=== PATIENT | male | born 1940 | race Caucasian/White ===

== ENCOUNTER 2017-04-22 09:02 | Day surgery (SDC) | payer MEDICARE ==
[~2017-04-22 09:02] MED LIST: Buffered Lidocaine 0.9% SYRIN* 5 ML/SYR SYRINGE INTRADERM ONE; Sodium Citrate/Citric Acid* 15 ML UDC PO ONE
[2017-04-22] MEDS ORDERED: Sodium Citrate/Citric Acid* 15 ML UDC ONE (09:09)
[2017-04-22] MEDS ORDERED: Buffered Lidocaine 0.9% SYRIN* 5 ML/SYR SYRINGE ONE (09:09)
[2017-04-22] MEDS ORDERED: ceFAZolin 2 GM PREMIX (*) 2 GM/50 ML BAG IVPB ONE (09:09)
[2017-04-22] MEDS ORDERED: Lidocaine 2% PF * 5 ML VIAL ONE (10:09)
[2017-04-22] MEDS ORDERED: Ketorolac INJ* 30 MG/ML 1 ML VIAL ONE (10:09)
[2017-04-22] MEDS ORDERED: Ondansetron INJ* 2 MG/ML VIAL ONE (10:09)
[2017-04-22] MEDS ORDERED: Midazolam* 1 MG/ML 2 ML VIAL (2 MG) ONE (10:13)
[2017-04-22] MEDS ORDERED: fentaNYL* 50 MCG/ML 2 ML VIAL (100 MCG VIAL) ONE (10:13)
[2017-04-22] MEDS ORDERED: Propofol* 10 MG/ML 20 ML BTL IV PUSH ONE ×2 (10:19→10:38)
[2017-04-22] MEDS ORDERED: Bupivacaine 0.5% SDV PF* 30 ML VIAL ONE (11:13)
[2017-04-22] MEDS ORDERED: Lidocaine 1% MPF wEPI 200,000* 30 ML SDV ONE (11:13)
[2017-04-22] MEDS ORDERED: Ondansetron INJ* 2 MG/ML VIAL IV PRN (11:39)
[2017-04-22] MEDS ORDERED: HYDROmorphone INJ* 1 MG/ML CARPUJECT SYRINGE IV PRN (11:39)
[2017-04-22] MEDS ORDERED: PROCHLORPERAZINE INJ 5 MG/ML 2 ML VIAL IV PRN (11:39)
[2017-04-22] MEDS ORDERED: oxyCODONE TAB* 5 MG TAB PO PRN (11:39)
[2017-04-22] MEDS ORDERED: Ibuprofen TAB* 600 MG PO PRN (11:39)
[2017-04-22] MEDS ORDERED: Acetaminophen TAB* 325 MG PO PRN (11:39)
[2017-04-22] MEDS ORDERED: fentaNYL* 50 MCG/ML 2 ML VIAL (100 MCG VIAL) IV PRN (11:39)
[2017-04-22] MEDS ORDERED: oxyCODONE/Acetamin 5/325 MG* TAB PO PRN ×2 (11:39→12:55)
[2017-04-22 14:47] VITALS: BP 153/81
[2017-04-22] MEDS ORDERED: Tobramycin 0.3% OPHTH.OINT* 3.5 GM TUBE (OPTH OINTMENT) RIGHT EYE SCH (21:00)
--- NOTE | 2017-04-22 22:45 | OP ---
DATE OF OPERATION: 04/22/17 - [facility] DATE OF : 38 SURGEON: Edward Spicer MD PIERCING ARTIST: MAUREEN Perez ANESTHESIOLOGIST: Dr. Jackie Nunez. ANESTHESIA: Local with monitored anesthesia care. PRE-OP DIAGNOSIS: Right inguinal hernia. POST-OP DIAGNOSIS: Right direct inguinal hernia. OPERATIVE PROCEDURE: Open repair of a right direct inguinal hernia with a ProGrip Covidien polyester mesh. ESTIMATED BLOOD LOSS: Minimal. COMPLICATIONS: None. DRAINS: None. SPECIMENS: None. DESCRIPTION OF PROCEDURE: Written informed consent was obtained, the right groin was marked with indelible ink and preoperative antibiotics were administered. The patient was taken to the operating room and placed in the supine position. Sequential compression devices and a warming blanket were applied. Time-out verification was completed. A mixture of 0.5% Marcaine and 1% lidocaine was infiltrated in the right groin and an oblique incision several finger-breadths above the inguinal crease was made and carried down through Shanita's fascia. The external oblique aponeurosis and external ring were identified and opened in the direction of its fibers. Next, the underlying spermatic cord was encircled with a one-quarter inch Mikado drain at the pubic tubercle. The cord structures were then reflected anteriorly to expose the direct space. It appeared that there was a rather large direct space hernia with laxity of the entire floor. There was a lipoma on the spermatic cord, which was excised, but not sent for specimen. Care was taken to prevent an injury to the cord structures throughout the remainder of the case. It should be noted there was no evidence of indirect inguinal hernia. Once we had identified the anatomy, a ProGrip Covidien precut mesh was then placed and sutured to the pubic tubercle medially and placed to cover both the direct and indirect spaces and adhered to the conjoint tendon superiorly, the musculature laterally as well as the inguinal ligament inferiorly. Several 0 Vicryl sutures were placed to secure the mesh. Hemostasis was assured. The mesh appeared to be without wrinkling or folding. Additional Marcaine was infiltrated. The external oblique aponeurosis was closed with a running 0 Polysorb suture. The Shanita's fascia was closed with a running 3-0 Vicryl suture. The skin was approximated with subcuticular 4-0 Vicryl suture. Steri-Strips and sterile dressings were applied. The patient tolerated the procedure well, was taken to the recovery room in stable condition. [id number]/[facility] #: [id number] WILL
== END 2017-04-22 15:03 | disposition home or self-care (01) ==
LOC: OR 09:02
PROVIDERS: ATTEND Surgery
DX: K40.90 Unilateral inguinal hernia, without obstruction or gangrene, not specified as recurrent (principal); E78.5 Hyperlipidemia, unspecified; I10 Essential (primary) hypertension
CPT/HCPCS: A9270-GY; C1781; J0690; J1885; J2001; J2250; J2405; J2704; J3010

== ENCOUNTER 2023-01-13 14:28 | Inpatient (IN) ==
[2023-01-14] MEDS ORDERED: Piperacillin/Tazobac 3.375 BAG 3.375 GM/100 ML BAG IV ONE (00:15)
[2023-01-14 00:39] LABS: ABS Monocytes 0.5 10^3/uL (0.0-1.1); ABS Neutrophils 7.1 10^3/uL (1.5-7.6); ABS Nucleated RBC 0.01 10^3/ul; Hematocrit 33.9 % (38-53); Hemoglobin 11.5 g/dL (13.2-16.3); Lymphocyte % 11.7 %; Mean Corpuscular Hemoglobin 29.4 pg (27-33); Mean Corpuscular Hgb Conc 33.8 g/dL (31-36); Mean Corpuscular Volume 86.9 fL (80-97); Nucleated Red Blood Cells % 0.1 /100 WBC (0.0-0.4); Platelet Count 291 10^3/uL (150-450); Red Cell Distribution Width 13.7 % (12-17); White Blood Count 8.6 10^3/uL (3.6-10.2)
[2023-01-14 00:54] LABS: Albumin 2.7 g/dL (3.2-5.2); Calcium 8.2 mg/dL (8.6-10.3); Creatinine, Serum 1.22 mg/dL (0.67-1.17); Globulin 2.6 g/dL (2-4); Magnesium 2.4 mg/dL (1.9-2.7); Potassium 3.3 mmol/L (3.5-5.0); Total Bilirubin 0.3 mg/dL (0.2-1.0); Total Protein 5.3 g/dL (6.4-8.9); eGFR CKD-EPI 58.8 (>60)
[2023-01-14 00:55] LABS: C Reactive Protein 124.74 mg/L (<8.01)
[2023-01-14] MEDS ORDERED: Zosyn per Pharmacy NOTE FOLLOW UP SCH (01:00)
[2023-01-14] MEDS ORDERED: KCL 20 MEQ/100 ML IVPREMIX 20 MEQ/100 ML BAG IV ONE (01:09)
[2023-01-14 02:13] LABS: Urine Appearance Turbid; Urine Bilirubin Negative (Negative); Urine Blood 2+ (Negative); Urine Color Yellow; Urine Glucose Negative (Negative); Urine Ketones 1+ (Negative); Urine Nitrite Negative (Negative); Urine Protein 2+(100 mg/dL) (Negative); Urine Urobilinogen Negative (Negative)
[2023-01-14 02:19] LABS: Urine Bacteria Absent (Absent); Urine Red Blood Cell 2+(6-10/hpf) (Absent); Urine White Blood Cell 3+(>20/hpf) (Absent)
[2023-01-14] MEDS: NS 0.9% 1000 ml BAG 1,000 ML IV SCH ×2 (02:38→18:01)
[2023-01-14] MEDS: ZOSYN 3.375 GM Q8H per EXTENDED INFUSION IV SCH ×3 (06:26→22:15)
[2023-01-14] MEDS: Heparin 5000 UNITS/ML 1 mL VIAL SUBCUT SCH ×3 (06:30→22:17)
[2023-01-14] MEDS ORDERED: Iodixanol (CONTRAST) 320 MG/ML 100 ML SDV IV ONE (11:58)
[2023-01-14] MEDS ORDERED: cefTRIAXone 1 gm/50 mL D5W 1 GM/50 ML BAG IV SCH (12:00)
[2023-01-14] MEDS: Potassium Chlor 20 meq TAB.ER PO ONE ×2 (16:06→18:08)
[2023-01-15] MEDS: NS 0.9% 1000 ml BAG 1,000 ML IV SCH (04:04)
[2023-01-15] MEDS: Heparin 5000 UNITS/ML 1 mL VIAL SUBCUT SCH ×3 (05:48→20:32)
[2023-01-15] MEDS ORDERED: cefTRIAXone 1 gm/50 mL D5W 1 GM/50 ML BAG IV SCH (06:00)
[2023-01-15 06:05] LABS: ABS Lymphocytes 0.7 10^3/uL (1.0-4.8); ABS Monocytes 0.4 10^3/uL (0.0-1.1); ABS Neutrophils 3.2 10^3/uL (1.5-7.6); Eosinophil % 0.1 %; Hematocrit 33.5 % (38-53); Hemoglobin 11.6 g/dL (13.2-16.3); Lymphocyte % 16.3 %; Mean Corpuscular Hemoglobin 29.8 pg (27-33); Mean Corpuscular Hgb Conc 34.7 g/dL (31-36); Mean Corpuscular Volume 86.1 fL (80-97); Mean Platelet Volume 7.5 fL (7.5-11.2); Platelet Count 238 10^3/uL (150-450); Red Blood Count 3.89 10^6/uL (4.06-5.63); Red Cell Distribution Width 13.1 % (12-17); White Blood Count 4.3 10^3/uL (3.6-10.2)
[2023-01-15 06:25] LABS: Calcium 7.6 mg/dL (8.6-10.3); Creatinine, Serum 0.84 mg/dL (0.67-1.17); Potassium 3.5 mmol/L (3.5-5.0); eGFR CKD-EPI 86.5 (>60)
[2023-01-15] MEDS: metroNIDAZOLE IV 500 MG/100ML 500 MG/100 ML BAG IVPB SCH ×2 (11:25→20:32)
[2023-01-15] MEDS ORDERED: cefTRIAXone 1 gm/50 mL D5W 1 GM/50 ML BAG IV ONE (16:49)
[2023-01-16] MEDS: metroNIDAZOLE IV 500 MG/100ML 500 MG/100 ML BAG IVPB SCH ×3 (02:16→19:59)
[2023-01-16 05:54] LABS: ABS Lymphocytes 0.6 10^3/uL (1.0-4.8); ABS Monocytes 0.3 10^3/uL (0.0-1.1); ABS Neutrophils 2.7 10^3/uL (1.5-7.6); ABS Nucleated RBC 0.01 10^3/ul; Eosinophil % 0.2 %; Hematocrit 32.4 % (38-53); Hemoglobin 11.2 g/dL (13.2-16.3); Lymphocyte % 16.9 %; Mean Corpuscular Hemoglobin 29.8 pg (27-33); Mean Corpuscular Hgb Conc 34.7 g/dL (31-36); Mean Corpuscular Volume 85.9 fL (80-97); Mean Platelet Volume 7.2 fL (7.5-11.2); Nucleated Red Blood Cells % 0.2 /100 WBC (0.0-0.4); Platelet Count 228 10^3/uL (150-450); Red Blood Count 3.77 10^6/uL (4.06-5.63); Red Cell Distribution Width 13.4 % (12-17); White Blood Count 3.6 10^3/uL (3.6-10.2)
[2023-01-16 06:10] LABS: Creatinine, Serum 0.7 mg/dL (0.67-1.17); Potassium 2.9 mmol/L (3.5-5.0); eGFR CKD-EPI 91.4 (>60)
[2023-01-16] MEDS: cefTRIAXone 2 gm/50 mL D5W 2 GM/50 ML BAG IV SCH (06:36)
[2023-01-16] MEDS: Heparin 5000 UNITS/ML 1 mL VIAL SUBCUT SCH ×3 (06:37→20:00)
[2023-01-16] MEDS: KCL 20 MEQ/100 ML IVPREMIX 20 MEQ/100 ML BAG IV SCH ×3 (10:22→17:34)
[2023-01-16 15:52] LABS: Rapid COVID-19 Molecular Undetected (Undetected)
[2023-01-17] MEDS: metroNIDAZOLE IV 500 MG/100ML 500 MG/100 ML BAG IVPB SCH ×3 (03:18→19:51)
[2023-01-17] MEDS: cefTRIAXone 2 gm/50 mL D5W 2 GM/50 ML BAG IV SCH (05:20)
[2023-01-17] MEDS: Heparin 5000 UNITS/ML 1 mL VIAL SUBCUT SCH ×3 (05:20→22:30)
[2023-01-17 05:56] LABS: Calcium 7.4 mg/dL (8.6-10.3); Potassium 3.3 mmol/L (3.5-5.0)
[2023-01-17 06:02] LABS: Creatinine, Serum 0.78 mg/dL (0.67-1.17); eGFR CKD-EPI 88.5 (>60)
[2023-01-17] MEDS ORDERED: Potassium Chlor 20 meq TAB.ER PO ONE (07:53)
[2023-01-18] MEDS: metroNIDAZOLE IV 500 MG/100ML 500 MG/100 ML BAG IVPB SCH ×2 (02:55→12:26)
[2023-01-18] MEDS: Heparin 5000 UNITS/ML 1 mL VIAL SUBCUT SCH (05:43)
[2023-01-18] MEDS: cefTRIAXone 2 gm/50 mL D5W 2 GM/50 ML BAG IV SCH (05:50)
[2023-01-18 10:01] VITALS: BP 109/64
== END 2023-01-18 13:10 | DRG 391 ==
LOC: SSU 21:56 → INTOOBSV 21:56 → SUATTDRO 01-14 10:00
PROVIDERS: ADMIT Hospitalist; ATTEND Internal Medicine